=== PATIENT | male | born 1955 | race Caucasian/White ===

== ENCOUNTER 2022-12-18 19:04 | Emergency (ER) | payer OTHER, SELFPAY ==
--- NOTE | ~2022-12-18 | XR_ITS ---
EXAMINATION: XR chest 2V DATE: 12/18/2022 19:47 INDICATION: Left chest pain. Shortness of breath. TECHNIQUE: Frontal and lateral views of the chest were obtained. COMPARISON: None. FINDINGS: A calcified right lung nodule and calcified right hilar lymph nodes are consistent with old granulomatous disease. No pleural effusion or pneumothorax. The heart size is normal. IMPRESSION: 1. No acute cardiopulmonary disease. Reviewed, dictated and finalized at location E.
--- NOTE | 2022-12-18 19:05 | ECG_ITS ---
Measurements Intervals [place] Rate: 86 P: 72 MN: 139 QRS: 39 QRSD: 109 T: 57 QT: 337 QTc: 403 Interpretive Statements SINUS RHYTHM BASELINE ARTIFACT- I, II NORMAL ECG COMPARED TO ECG 05/08/2019 11:36:39 NO SIGNIFICANT CHANGES Electronically Signed On 12-18-2022 20:25:24 CDT by Eddie Gonsalez D.O.
[2022-12-18 19:11] VITALS: BP 147/80; PULSE 91; RESP 16; TEMP 36.5; O2SAT 98
[2022-12-18 19:28] LABS: Basophils Absolute Auto 0.1 K/mm3 (0.0-0.1); Basophils Percent Auto 0.6 % (0.2-1.2); Eosinophils Absolute Auto 0.3 K/mm3 (0-0.3); Eosinophils Percent Auto 2.5 % (0-4.4); Hematocrit 43.6 % (42.0-52.0); Hemoglobin 15.3 g/dL (14.0-18.0); Immature Granulocyte Absolute 0.05 K/mm3 (0.00-0.031); Immature Granulocyte Percent A 0.4 % (0-0.5); Lymphocytes Absolute Auto 3.25 K/mm3 (0.9-3.2); Lymphocytes Percent Auto 26.4 % (18.3-44.2); Mean Corpuscular HGB Conc 35.1 g/dl (32-36); Mean Corpuscular Hemoglobin 31.5 pg (26-34); Mean Corpuscular Volume 89.9 fl (80-100); Mean Platelet Volume 9.5 fl (7.4-10.4); Monocytes Absolute Auto 0.7 K/mm3 (0.1-0.6); Monocytes Percent Auto 5.5 % (2.6-8.5); Neutrophils Absolute Auto 7.9 K/mm3 (1.3-6.7); Neutrophils Percent Auto 64.6 % (45.5-73.1); Platelet Count Result 292 k/mm3 (150-375); Red Blood Count 4.85 M/mm3 (4.6-6.20); Red Cell Distribution Width 12.7 % (11.5-14.5); White Blood Count 12.3 K/mm3 (4.5-10.0)
[2022-12-18 19:38] LABS: Alanine Aminotransferase 18 U/L (6-50); Albumin Level 4.3 g/dL (3.5-5.1); Alkaline Phosphatase 73 U/L (38-126); Anion Gap 9 mmol/L (8-16); Aspartate Amino Transferase 19 U/L (17-59); Bilirubin,Total 0.5 mg/dL (0.2-1.3); Blood Urea Nitrogen 16 mg/dL (9-20); Calcium 8.8 mg/dL (8.4-10.2); Carbon Dioxide 24 mmol/L (22-30); Chloride 103 mmol/L (98-107); Estimated CRCL calculation 59 ml/min; Estimated Glomerular Filt Rate > 60; Glucose 124 mg/dL (65-110); Lipase 51 U/L (23-300); Potassium 3.5 mmol/L (3.4-5.0); Sodium 136 mmol/L (137-145)
[2022-12-18 19:43] LABS: Prothrombin Time 13.6 Seconds (11.1-14.7)
[2022-12-18 19:50] LABS: Troponin I < 0.012 ng/mL (0.000-0.034)
[2022-12-18 22:15] VITALS: BP 155/80; PULSE 78; RESP 14; O2SAT 97
[2022-12-18 22:42] LABS: Troponin I < 0.012 ng/mL (0.000-0.034)
--- NOTE | 2022-12-18 23:21 | ED.GENADULT ---
HPI - General Adult General Chief complaint: Chest Pain Stated complaint: chest pain, sob Time Seen by Provider: 12/18/22 22:00 History of Present Illness HPI narrative: This is a 67-year-old male presenting ED with chief complaint of chest pain. Patient says that the the pain started at 5:00 p.m. while [place] It is a dull pain in center of his chest, nonradiating, for a 5 intensity and comes and goes. He is currently past chest pain-free. He has never experienced pain like this for there are no exacerbating relieving factors. Not associated with vomiting diaphoresis or exertional component. No fever chills nausea vomiting diarrhea lower extremity edema.He has no other disease he had a dry cough for the last 2 weeks. Patient had negative stress test 1 year ago Patient has recently started on metoprolol which he said made him feel lightheaded and dizzy and then was started on chlorthalidone today which she thinks is responsible for symptoms. Related Data Home Medications Medication Instructions Recorded Confirmed No Home Medications 05/08/19 05/08/19 Allergies Allergy/AdvReac Type Severity Reaction Status Date / Time No Known Allergies Allergy Verified 12/18/22 19:04 [facility] Past Medical History Medical History BPH (benign prostatic hyperplasia) GERD (gastroesophageal reflux disease) HTN (hypertension) Social History Social History Smoking packs per day: 2 Smoking cigarettes per day: 40.0 Smoking status: Current every day smoker Tobacco type: cigarettes Substance use: never Exam Narrative: APPEARANCE: No apparent distress. patient is resting comfortably. Head: atraumatic. EYES: EOMI, NOSE: Atraumatic NECK: Trachea midline RESPIRATORY: No increased rate of breathing Clear to auscultation CARDIOVASCULAR: RRR, no peripheral edema ABDOMINAL: Non-distended MUSCULOSKELETAl: No obvious deformities NEURO: Alert. Moving 4/4 extremities SKIN:: Warm, dry. Normal color PSYCHIATRIC: Normal affect Course Vital Signs Vital signs: Vital Signs Temperature 97.7 F 12/18/22 19:11 Pulse Rate 91 12/18/22 19:11 Respiratory Rate 16 12/18/22 19:11 Blood Pressure 147/80 H 12/18/22 19:11 Pulse Oximetry 98 12/18/22 19:11 Oxygen Delivery Room Air 12/18/22 19:11 Temperature 97.7 F 12/18/22 19:11 Pulse Rate 78 12/18/22 22:15 Respiratory Rate 14 12/18/22 22:15 Blood Pressure 155/80 H 12/18/22 22:15 Pulse Oximetry 97 12/18/22 22:15 Oxygen Delivery Room Air 12/18/22 19:11 Medical Decision Making MDM Narrative Medical decision making narrative: -Presentation: 67-year-old male presenting with an episode of chest pain that has since resolved. -DDX includes but is not limited to: angina, ACS, chest wall pain, pneumonia, bronchitis -Co-morbidities complicating care: hypertension, BPH, GERD -Social determinants of health: patient is retired, accompanied by his ex- -External Chart Review: none -Hx from independent Sources: ex- the bedside -Independent interpretation of studies: WBC 12.3. metabolic panel normal. Troponin negative x2. Chest x-ray negative. Independent EKG interpretation: Rhythm [sinus], Rate [86], [place] -[normal], [place] -[normal], QRS [narrow], QTC [normal], T waves -[negative for concerning inversions], ST Segments - [Negative for concerning elevations] Final interpretations: [Normal Sinus Rhythm] -Discussion of Management/Consultants: none -Dx tests considered but not ordered: none -Procedures: none -Interventions: 325 mg aspirin -Shared decision making / Disposition: Upon re-evaluation patient has been pain-free since his arrival. Patient's EKGs and labs are reviewed without significant high risk changes. Cardiac risk factors reviewed. Heart score is <4 and it iss reas
[2022-12-18 23:46] VITALS: BP 126/77; PULSE 78; RESP 16; O2SAT 97
== END 2022-12-18 23:47 | disposition home or self-care (01) ==
PROVIDERS: Emergency Medicine; Emergency Provider Emergency Medicine; PCP Family Medicine Sports Medicine
DX: R07.9 Chest pain, unspecified (principal); N40.0 Benign prostatic hyperplasia without lower urinary tract symptoms; K21.9 Gastro-esophageal reflux disease without esophagitis; I10 Essential (primary) hypertension; F17.210 Nicotine dependence, cigarettes, uncomplicated
CPT/HCPCS: 36415; 71046; 80053; 83690; 84484; 85025; 85610; 85730; 93005; 99284

== ENCOUNTER 2023-01-17 09:19 | Observation (INO) | payer OTHER, SELFPAY ==
[2023-01-17] VITALS (18 sets, daily range): BP systolic 136–169; BP diastolic 63–97; PULSE 58–72; RESP 12–22; TEMP 36.9; O2SAT 95–99
--- NOTE | ~2023-01-17 | XR_ITS ---
EXAMINATION: XR chest 1V portable DATE: 01/17/2023 09:42 INDICATION: Chest pain. TECHNIQUE: A single frontal view of the chest was obtained on 2 radiographs. COMPARISON: Chest 2 views 12/18/2022 FINDINGS: There is mild atelectasis in the lower lung zones. A calcified right lung nodule is consist ent with old granulomatous disease. No pleural effusion or pneumothorax. The heart size is normal. IMPRESSION: 1. Mild atelectasis in the lower lung zones. Reviewed, dictated and finalized at location A.
--- NOTE | 2023-01-17 09:21 | ECG_ITS ---
Measurements Intervals [place] Rate: 69 P: 59 [place]: 148 QRS: 8 QRSD: 90 T: 28 QT: 354 QTc: 382 Interpretive Statements SINUS RHYTHM COMPARED TO ECG 12/18/2022 19:09:18 NO SIGNIFICANT CHANGES Electronically Signed On 01-17-2023 9:41:04 CDT by Rosa Hastings M.D.
[2023-01-17 09:36] LABS: Basophils Absolute Auto 0.1 K/mm3 (0.0-0.1); Basophils Percent Auto 0.8 % (0.2-1.2); Eosinophils Absolute Auto 0.4 K/mm3 (0-0.3); Eosinophils Percent Auto 4.1 % (0-4.4); Hematocrit 47.7 % (42.0-52.0); Hemoglobin 16.5 g/dL (14.0-18.0); Immature Granulocyte Absolute 0.04 K/mm3 (0.00-0.031); Immature Granulocyte Percent A 0.4 % (0-0.5); Lymphocytes Absolute Auto 2.41 K/mm3 (0.9-3.2); Lymphocytes Percent Auto 25.3 % (18.3-44.2); Mean Corpuscular HGB Conc 34.6 g/dl (32-36); Mean Corpuscular Hemoglobin 31.3 pg (26-34); Mean Corpuscular Volume 90.3 fl (80-100); Mean Platelet Volume 9.5 fl (7.4-10.4); Monocytes Absolute Auto 0.6 K/mm3 (0.1-0.6); Monocytes Percent Auto 6.4 % (2.6-8.5); Platelet Count Result 243 k/mm3 (150-375); Red Blood Count 5.28 M/mm3 (4.6-6.20); Red Cell Distribution Width 13.1 % (11.5-14.5); White Blood Count 9.5 K/mm3 (4.5-10.0)
[2023-01-17 09:45] LABS: INR 0.9
[2023-01-17 09:46] LABS: Partial Thromboplastin Time 27.3 SECONDS (22.3-36.8)
[2023-01-17 09:52] LABS: Alanine Aminotransferase 21 U/L (6-50); Albumin Level 4.5 g/dL (3.5-5.1); Alkaline Phosphatase 67 U/L (38-126); Anion Gap 4 mmol/L (8-16); Aspartate Amino Transferase 22 U/L (17-59); Bilirubin,Total 0.7 mg/dL (0.2-1.3); Blood Urea Nitrogen 17 mg/dL (9-20); Carbon Dioxide 29 mmol/L (22-30); Chloride 102 mmol/L (98-107); Estimated CRCL calculation 59 ml/min; Estimated Glomerular Filt Rate > 60; Glucose 111 mg/dL (65-110); Lipase 49 U/L (23-300); Potassium 4.4 mmol/L (3.4-5.0); Sodium 135 mmol/L (137-145)
[2023-01-17 10:03] LABS: Troponin I 0.013 ng/mL (0.000-0.034)
--- NOTE | 2023-01-17 10:56 | PC.NURSE ---
Patient report given to DESTINY Garza. All questions answered and care of patient transferred.
--- NOTE | 2023-01-17 10:57 | PC.NURSE ---
Patient report given to DESTINY Garza. All questions answered and care of patient transferred.
--- NOTE | 2023-01-17 11:15 | ED.CHESTPAIN ---
HPI - Chest Pain General Chief Complaint: Chest Pain Stated Complaint: chest pain Time Seen by Provider: 01/17/23 09:33 History of Present Illness HPI narrative: This is a 67-year-old male, past history of GERD and hypertension, who presents to the emergency department complaining of chest pain for the past 4 days. The patient describes the pain as burning, rated 7/10, radiating to the left arm and exacerbated by physical exertion. At minimum the pain is not present and last approximately 10 to 15 minutes each time. This is associated with shortness of breath that resolves with pain resolution. The patient denies recent illness or trauma Related Data Home Medications Medication Instructions Recorded Confirmed No Home Medications 05/08/19 05/08/19 Allergies Allergy/AdvReac Type Severity Reaction Status Date / Time No Known Allergies Allergy Verified 01/17/23 09:32 Review of Systems Review of Systems: CONSTITUTIONAL: Denies fever, chills, or sweats. CARDIOVASCULAR: Chest pain radiating to the left arm denies palpitations, or edema. RESPIRATORY: Intermittent shortness of breath denies cough GASTROINTESTINAL: Denies abdominal pain, nausea, vomiting, or diarrhea. GENITOURINARY: Denies dysuria or hematuria. SKIN: Denies rash or itching. MUSCULOSKELETAL: Denies back pain, joint pain, or myalgia. NEUROLOGIC: Denies headache, numbness, dizziness, or weakness. PSYCHIATRIC: Denies anxiety or depression. PMFSH Past Medical History Medical History BPH (benign prostatic hyperplasia) GERD (gastroesophageal reflux disease) HTN (hypertension) Social History Social History Smoking packs per day: 2 Smoking cigarettes per day: 40.0 Smoking status: Current every day smoker Tobacco type: cigarettes Substance use: never Exam Narrative: GENERAL: Well-developed, well-nourished, and in no acute distress. HEAD: Normocephalic, atraumatic. EYES: PERRLA and EOMI. NECK: Supple. No adenopathy or masses. No JVD CHEST: Clear to auscultation. No respiratory distress. No wheezes rales or rhonchi HEART: Regular rate and rhythm. No murmur heard. Normal peripheral pulses. ABDOMEN: Soft, nontender, nondistended, normal active bowel sounds. EXTREMITIES: Normal range of motion. No edema. SKIN: Warm, dry, no rash. NEURO: No focal deficits. Alert and oriented x3. PSYCH: Normal mood and affect. Course Course Emergency Course: 11:15 - EKG not concerning for STEMI. Initial troponin negative. Chemistries demonstrate mild hyponatremia with sodium of 135. CBC unremarkable. Chest x-ray not concerning for acute cardiopulmonary process. The patient's heart score is 6. I discussed the patient with director of donor relations SAMMY Prather and hospitalist, Dr. Garrett who accepts admission. I discussed these findings and recommendations with the patient and his spouse. They voiced understanding and are comfortable with the plan. All questions answered to their satisfaction. Vital Signs Vital signs: Vital Signs Temperature 98.4 F 01/17/23 09:25 Pulse Rate 72 01/17/23 09:25 Respiratory Rate 18 01/17/23 09:25 Blood Pressure 165/97 H 01/17/23 09:25 Pulse Oximetry 96 01/17/23 09:25 Oxygen Delivery Room Air 01/17/23 09:25 Temperature 98.4 F 01/17/23 09:25 Pulse Rate 59 L 01/17/23 10:46 Respiratory Rate 15 01/17/23 10:46 Blood Pressure 147/71 H 01/17/23 10:46 Pulse Oximetry 98 01/17/23 10:46 Oxygen Delivery Room Air 01/17/23 09:36 MDM - Chest Pain MDM Narrative Medical decision making narrative: Plan: Labs, EKG, imaging, reassess Differential Diagnosis Differential diagnosis: Likely pneumothorax, unstable angina pectoris, st elevation myocardial infarction, chest pain and other (Metabolic abnormality, GERD, other) Lab Data 01/17/23 09:28 01/17/23 09:28 Labs:
[2023-01-17 13:19] LABS: Troponin I 0.015 ng/mL (0.000-0.034)
--- NOTE | 2023-01-17 15:06 | ADMGEN ---
This patient, Nadir Espinosa, was admitted to IMU Room 205-01 on 01/17/23 at 1215. Patient/family oriented to hospital policies and general routines including ID bracelet, bed and alarms, visiting hours, pain management, procedures, bathroom and other care routines, personal items, smoking policy, room service/diet, and visiting hours. Information on how to activate the Rapid Response Team has been discussed. Patient/Family are encouraged to report perceived risks to care and to ask questions if they do not understand what they are told or what they should do.
--- NOTE | 2023-01-17 15:07 | PC.NURSE ---
Patient decided to leave AMA before admission was completed. Patient notified of risks of leaving AMA. Dr. Garrett notified. IV removed. Patient signed AMA form and left at 1335.
== END 2023-01-17 13:35 | disposition left against medical advice (07) ==
LOC: ANHED 11:25 → ANHIMU 11:54
PROVIDERS: Admitting Provider Chiropractor; Emergency Provider Preventive Medicine Aerospace Medicine; PCP Family Medicine Sports Medicine; Visit Provider Chiropractor
DX: R07.9 Chest pain, unspecified (principal); R06.02 Shortness of breath; E87.1 Hypo-osmolality and hyponatremia; I10 Essential (primary) hypertension; K21.9 Gastro-esophageal reflux disease without esophagitis; N40.0 Benign prostatic hyperplasia without lower urinary tract symptoms; F17.210 Nicotine dependence, cigarettes, uncomplicated
CPT/HCPCS: 36415; 71045; 80053; 83690; 84484; 85025; 85610; 85730; 93005; 99285; G0378